=== PATIENT | female | born 1960 | race Caucasian/White ===

== ENCOUNTER 2018-10-05 06:56 | Emergency (ER) | payer BC ==
[2018-10-05] MEDS ORDERED: cephALEXin 250 MG CAPSULE PO STA (07:20)
[2018-10-05] MEDS ORDERED: CHERRY SYRUP 10 ML UDC PO ONE (07:21)
[2018-10-05] MEDS ORDERED: DEXAMETHASONE 10 MG/ML VIAL PO STA (07:21)
--- NOTE | 2018-10-05 07:25 | ED Physician Documentation ---
PD HPI HEENT - Stated complaint Stated Complaint: SORE THROAT - Chief complaint Chief Complaint: Heent - History obtained from History obtained from: Patient - History of Present Illness Timing - onset: How many days ago (2) Timing - duration: Days (2) Timing - details: Gradual onset, Still present Location: Throat Improves: Medication Worsens: Swalllowing Associated symptoms: Congestion, Swollen nodes. No: Fever, Rhinorrhea, Trismus, Cough Similar symptoms before: Diagnosis (pharyngitis) Recently seen: Not recently seen - Additional information Additional information: 58-year-old female breast cancer patient on anastrozole has developed a sore throat and a lot of pain with swallowing. She denies any fever cough. She has had these symptoms previously she states that usually she has to get on some antibiotic to get rid of this. She is concerned because she has been on chemotherapy and she does not want infection to get out of control. Review of Systems Constitutional: denies: Fever Eyes: denies: Decreased vision Ears: denies: Ear pain Nose: reports: Congestion. denies: Rhinorrhea / runny nose Throat: reports: Sore throat Cardiac: denies: Chest pain / pressure, Palpitations Respiratory: denies: Dyspnea, Cough GI: denies: Abdominal Pain, Nausea, Vomiting : denies: Dysuria, Frequency PD PAST MEDICAL HISTORY - Present Medications Home Medications: Ambulatory Orders Medication Instructions Recorded Confirmed Anastrozole 1 mg PO DAILY 10/05/18 10/05/18 Cephalexin [Keflex] 500 mg PO QID #40 capsule 10/05/18 - Allergies Allergies/Adverse Reactions: Allergies Allergy/AdvReac Type Severity Reaction Status Date / Time Sulfa (Sulfonamide Allergy Hives Verified 10/05/18 07:07 Antibiotics) PD ED PE NORMAL - Vitals Vital signs reviewed: Yes (hypertensive ) - General General: Alert and oriented X 3, No acute distress, Well developed/nourished - HEENT HEENT: Atraumatic, PERRL, EOMI, Ears normal, Other (There is inflamation to the right tonisllar pillar The left TM is obscured by cerumen. 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 Departure - Departure Disposition: 01 Home, Self Care Clinical Impression: Pharyngitis Qualifiers: Pharyngitis/tonsillitis etiology: unspecified etiology Qualified Code(s): J02.9 - Acute pharyngitis, unspecified Condition: Stable Instructions: ED Strep Pharyngitis Poss Follow-Up: Your, doctor [Other] Prescriptions: Cephalexin [Keflex] 500 mg PO QID #40 capsule
[2018-10-05 07:46] VITALS: BP 128/71
== END 2018-10-05 07:45 | disposition home or self-care (01) ==
LOC: ED 06:56
DX: J02.9 Acute pharyngitis, unspecified (principal); C50.919 Malignant neoplasm of unspecified site of unspecified female breast
CPT/HCPCS: 99282; 99284; A9270